=== PATIENT | male | born 1970 | race Two or more races ===

== ENCOUNTER 2019-01-30 12:55 | Emergency (ER) | payer BC, MEDICAID ==
[2019-01-30] MEDS: Sodium Chloride 0.9% 10 ML Syringe FLUSH PRN ×2 (13:15→13:30)
[2019-01-30] MEDS ORDERED: Labetalol 100 MG/20 ML MDV IVPUSH ONE (13:24)
--- NOTE | 2019-01-30 13:31 | EDM.PDOC ---
ED HPI GENERAL MEDICAL PROBLEM - General Chief Complaint: Cardiovascular Problem Stated Complaint: HIGH BP, LEFT HAND TINGLING Time Seen by Provider: 01/30/19 13:25 Source of Information: Reports: Patient History Limitations: Reports: No Limitations - History of Present Illness INITIAL COMMENTS - FREE TEXT/NARRATIVE: Developed anxiety, left hand tingling, and a feeling that his BP was high after being denied disability @1 hr ago. Has a h/o CABG (in 11/2017) and coronary stents (most recently in 04/2018). The patient is noncompliant with medications, he takes Coreg and Lisinopril once a day in the evening, however these are to be taken twice a day. He continues to smoke cigarettes. Patient denies chest pain or SOB. All previous AZ's were associated with chest pain and neck/jaw discomfort, neither of which he experienced today. Duration: Hour(s): (1) - Related Data Allergies Allergy/AdvReac Type Severity Reaction Status Date / Time No Known Allergies Allergy Verified 01/30/19 13:03 Home Meds: Home Meds Aspirin 325 mg PO DAILY 01/30/19 [History] Carvedilol [Coreg] 12.5 mg PO BID 01/30/19 [History] Clopidogrel Bisulfate [Plavix] 75 mg PO DAILY 01/30/19 [History] Isosorbide Mononitrate [Isosorbide Mononitrate ER] 60 mg PO DAILY 01/30/19 [ History] LORazepam [Ativan] 0.5 mg PO Q8H PRN #10 tablet 01/30/19 [Rx] Lisinopril 10 mg PO BID 01/30/19 [History] Potassium 198 mg PO DAILY 01/30/19 [History] atorvaSTATin [Lipitor] 40 mg PO DAILY 01/30/19 [History] buPROPion HCl [Wellbutrin Xl] 300 mg PO DAILY 01/30/19 [History] Past Medical History Cardiovascular History: Reports: Bypass, CAD, High Cholesterol, Hypertension, [place] , Stents Respiratory History: Reports: Sleep Apnea Psychiatric History: Reports: Anxiety, Depression Social & Family History - Tobacco Use Smoking Status *Q: Current Every Day Smoker Tobacco Use Within Last Twelve Months: Cigarettes - Alcohol Use Alcohol Use History: No ED ROS GENERAL - Review of Systems Review Of Systems: ROS reveals no pertinent complaints other than HPI. Cardiovascular: Denies: Chest Pain Neurological: Reports: Paresthesia (left hand) ED EXAM, GENERAL - Physical Exam Exam: See Below Exam Limited By: No Limitations General Appearance: Alert, WD/WN, No Apparent Distress Ears: Normal External Exam Nose: Normal Inspection Throat/Mouth: Normal Inspection, No Airway Compromise Head: Atraumatic, Normocephalic Neck: Normal Inspection, Supple Respiratory/Chest: No Respiratory Distress, Lungs Clear, Normal Breath Sounds Cardiovascular: Regular Rate, Rhythm, No Murmur GI/Abdominal: No Distention Extremities: Normal Inspection, Normal Range of Motion, Non-Tender, No Pedal Edema Neurological: Alert, CN II-XII Intact, Other (decreased sensation to light touch to dorsum of left hand, no weakness) Psychiatric: Normal Affect, Normal Mood Skin Exam: Warm, Dry, Intact EKG INTERPRETATION EKG Date: 01/30/19 Time: 13:13 Rhythm: NSR Rate (Beats/Min): 86 [place]: Normal P-Wave: Present QRS: Other (incomplete LBBB) ST-T: Other (Early repolarization ST elevation) QT: Normal Comparison: No Change (04/16/18) Course - Vital Signs Last Recorded V/S: Last Vital Signs Temp 36.6 C 01/30/19 13:00 Pulse 98 01/30/19 13:00 Resp 22 H 01/30/19 15:00 BP 143/98 H 01/30/19 15:00 Pulse Ox 98 01/30/19 15:00 - Orders/Labs/Meds Orders: Active Orders 24 hr Category Date Time Status EKG Documentation Completion [RC] ASDIRECTED Care 01/30/19 13:23 Active GLYCOSYLATED HEMOGLOBIN,HGBA1C [CHEM] Stat Lab 01/30/19 13:35 Received Sodium Chloride 0.9% [Saline Flush] Med 01/30/19 13:23 Active 10 ml FLUSH ASDIRECTED PRN Saline Lock Insert [OM.PC] Routine Oth 01/30/19 13:23 Ordered EKG 12 Lead [EK] Stat Ther 01/30/19 13:23 Ordered Medication Orders Sodium Chloride (Saline Flush) 10 ml FLUSH ASDIRECTED PRN PRN Reason: Keep Vein Open Last Admin: 01/30/19 13:30 Dose: 10 ml Admin: 01/30/19 13:15 Dose: 10 ml Labs: Laboratory Tests 01/30/19 01/30/19 01/30/19 Range/Units 13:35 13:35 13:35 WBC 9.1 (4.5-12.0) X10-3/uL RBC 5.40 (4.30-5.75) x10(6)uL Hgb 15.6 (13.5-17.8) g/dL Hct 45.9 (30.0-51.3) % MCV 85.1 (80-96) fL MCH 28.9 (27.7-33.6) pg MCHC 34.0 (32.2-35.4) g/dL RDW 11.8 (11.5-15.5) % Plt Count 236 (125-369) X10(3)uL MPV 7.9 (7.4-10.4) fL Neut % (Auto) 56.2 (46-82) % Lymph % (Auto) 34.1 (13-37) % [place] % (Auto) 7.4 (4-12) % Eos % (Auto) 2 (1.0-5.0) % Baso % (Auto) 1 (0-2) % Neut # (Auto) 5.0 (1.6-8.3) # Lymph # (Auto) 3.1 (0.6-5.0) # [place] # (Auto) 0.7 (0.0-1.3) # Eos # (Auto) 0.2 (0.0-0.8) # Baso # (Auto) 0.1 (0.0-0.2) # PT 9.6 (8.7-11.1) INR 0.99 (0.89-1.13) APTT 23.5 L (24.4-33.2) SECONDS Sodium 137 (135-145) mmol/L Potassium 4.0 (3.5-5.3) mmol/L Chloride 103 (100-110) mmol/L Carbon Dioxide 23 (21-32) mmol/L BUN 10 (7-18) mg/dL Creatinine 0.8 (0.70-1.30) mg/dL Est Cr Clr Drug Dosing TNP Estimated GFR (MDRD) > 60 (>60) BUN/Creatinine Ratio 12.5 (9-20) Glucose 252 H (80-116) mg/dL Calcium 8.9 (8.6-10.2) mg/dL Total Bilirubin 0.3 (0.1-1.3) mg/dL AST 17 (5-25) IU/L ALT 49 H (12-36) U/L Alkaline Phosphatase 128 H (56-112) IU/L Troponin I (<0.017-0.056) ng/mL Total Protein 7.1 (6.0-8.0) g/dL Albumin 3.6 (3.5-5.2) g/dL Globulin 3.5 g/dL Albumin/Globulin Ratio 1.0 01/30/19 01/30/19 Range/Units 13:35 16:20 WBC (4.5-12.0) X10-3/uL RBC (4.30-5.75) x10(6)uL Hgb (13.5-17.8) g/dL Hct (30.0-51.3) % MCV (80-96) fL MCH (27.7-33.6) pg MCHC (32.2-35.4) g/dL RDW (11.5-15.5) % Plt Count (125-369) X10(3)uL MPV (7.4-10.4) fL Neut % (Auto) (46-82) % Lymph % (Auto) (13-37) % [place] % (Auto) (4-12) % Eos % (Auto) (1.0-5.0) % Baso % (Auto) (0-2) % Neut # (Auto) (1.6-8.3) # Lymph # (Auto) (0.6-5.0) # [place] # (Auto) (0.0-1.3) # Eos # (Auto) (0.0-0.8) # Baso # (Auto) (0.0-0.2) # PT (8.7-11.1) INR (0.89-1.13) APTT (24.4-33.2) SECONDS Sodium (135-145) mmol/L Potassium (3.5-5.3) mmol/L Chloride (100-110) mmol/L Carbon Dioxide (21-32) mmol/L BUN (7-18) mg/dL Creatinine (0.70-1.30) mg/dL Est Cr Clr Drug Dosing Estimated GFR (MDRD) (>60) BUN/Creatinine Ratio (9-20) Glucose (80-116) mg/dL Calcium (8.6-10.2) mg/dL Total Bilirubin (0.1-1.3) mg/dL AST (5-25) IU/L ALT (12-36) U/L Alkaline Phosphatase (56-112) IU/L Troponin I < 0.017 L 0.018 (<0.017-0.056) ng/mL Total Protein (6.0-8.0) g/dL Albumin (3.5-5.2) g/dL Globulin g/dL Albumin/Globulin Ratio Meds: Medications Generic Name Dose Route Start Last Admin Trade Name Freq PRN Reason Stop Dose Admin Sodium Chloride 10 ml 01/30/19 13:23 01/30/19 13:30 Saline Flush FLUSH 10 ml ASDIRECTED PRN Administration Keep Vein Open Discontinued Medications Generic Name Dose Route Start Last Admin Trade Name Freq PRN Reason Stop Dose Admin Aspirin 324 mg 01/30/19 14:11 01/30/19 14:16 Aspirin PO 01/30/19 14:12 324 mg ONETIME ONE Administration Labetalol HCl 10 mg 01/30/19 13:24 01/30/19 13:30 Normodyne IVPUSH 01/30/19 13:25 10 mg ONETIME ONE Administration Protocol Lisinopril 10 mg 01/30/19 15:39 01/30/19 15:40 Prinivil PO 01/30/19 15:40 Not Given ONETIME ONE Nitroglycerin 0.4 mg 01/30/19 14:01 01/30/19 14:05 Nitrostat SL 01/30/19 14:02 0.4 mg ONETIME ONE Administration - Re-Assessments/Exams Free Text/Narrative Re-Assessment/Exam: 01/30/19 17:01 Symptoms have resolved, he no longer has numbness or tingling of the left hand. BP improved to 111/73 after Labetolol 10 mg IV and NTG SL x 1. Patient requests PRN anxiety medication. Departure - Departure Time of Disposition: 17:02 Disposition: Home, Self-Care 01 Condition: Good Clinical Impression: Hypertensive urgency, Anxiety Prescriptions: LORazepam [Ativan] 0.5 mg PO Q8H PRN #10 tablet PRN Reason: Anxiety Instructions: Hypertension, [id number], Generalized Anxiety Disorder, Adult Referrals: Sandeep Fuller MD [Primary Care Provider] - 1 Day Forms: ED Department Discharge Additional Instructions: Take your medications as prescribed, do not miss any doses. Fill the prescription for Ativan and take as directed. Follow up with your primary physician in 1-2 days. Return to the ER if symptoms recur or worsen. - My Orders Last 24 Hours: My Active Orders 01/30/19 13:23 EKG Documentation Completion [RC] ASDIRECTED Sodium Chloride 0.9% [Saline Flush] 10 ml FLUSH ASDIRECTED PRN Saline Lock Insert [OM.PC] Routine EKG 12 Lead [EK] Stat 01/30/19 13:35 GLYCOSYLATED HEMOGLOBIN,HGBA1C [CHEM] Stat - Assessment/Plan Last 24 Hours: My Active Orders 01/30/19 13:23 EKG Documentation Completion [RC] ASDIRECTED Sodium Chloride 0.9% [Saline Flush] 10 ml FLUSH ASDIRECTED PRN Saline Lock Insert [OM.PC] Routine EKG 12 Lead [EK] Stat 01/30/19 13:35 GLYCOSYLATED HEMOGLOBIN,HGBA1C [CHEM] Stat
[2019-01-30] MEDS ORDERED: Nitroglycerin 0.4 MG Tab.SL SL ONE (14:01)
[2019-01-30] MEDS ORDERED: Aspirin 81 MG Tab.Chew PO ONE (14:11)
[2019-01-30] MEDS ORDERED: Lisinopril 10 MG Tab PO ONE (15:39)
[2019-01-30 17:10] LABS: HEMOGLOBIN A1C 8.4 % (4.5-6.2)
== END 2019-01-30 17:15 | disposition home or self-care (01) ==
LOC: FB.ED 12:55
DX: I16.0 Hypertensive urgency (principal); F41.9 Anxiety disorder, unspecified; I10 Essential (primary) hypertension; E78.00 Pure hypercholesterolemia, unspecified; F32.9 Major depressive disorder, single episode, unspecified; I25.10 Atherosclerotic heart disease of native coronary artery without angina pectoris; F17.210 Nicotine dependence, cigarettes, uncomplicated; Z79.82 Long term (current) use of aspirin; Z79.02 Long term (current) use of antithrombotics/antiplatelets; Z79.899 Other long term (current) drug therapy
CPT/HCPCS: 36415; 80053; 83036; 84484; 85025; 85610; 85730; 93005; 96374; 99284; A9270; J3490

== ENCOUNTER 2020-03-25 18:27 | Emergency (ER) | payer MEDICAID ==
[2020-03-25] MEDS ORDERED: Amoxicillin/Clavulanate K 875-125 MG Tab PO ONE (18:47)
[2020-03-25] MEDS ORDERED: Ketorolac 60 MG/2 ML SDV IM ONE (18:48)
--- NOTE | 2020-03-25 18:54 | EDM.PDOC ---
ED HPI GENERAL MEDICAL PROBLEM - General Chief Complaint: ENT Problem Stated Complaint: LT EAR PAIN Time Seen by Provider: 03/25/20 18:40 Source of Information: Reports: Patient History Limitations: Reports: No Limitations - History of Present Illness INITIAL COMMENTS - FREE TEXT/NARRATIVE: left sided ear pain since this am woke with the pain thought he had ear wax, flushed it and it got worse having moderate pain in the ear with headache LEFT EAR Pain Score (Numeric/FACES): 8 - Related Data Allergies Allergy/AdvReac Type Severity Reaction Status Date / Time No Known Allergies Allergy Verified 03/25/20 18:46 Home Meds: Home Meds Isosorbide Mononitrate [Isosorbide Mononitrate ER] 60 mg PO DAILY 01/30/19 [History] LORazepam [Ativan] 0.5 mg PO Q8H PRN #10 tablet 01/30/19 [Rx] Lisinopril 10 mg PO BID 01/30/19 [History] Potassium 198 mg PO DAILY 01/30/19 [History] atorvaSTATin [Lipitor] 40 mg PO DAILY 01/30/19 [History] buPROPion HCL [Wellbutrin Xl] 300 mg PO DAILY 01/30/19 [History] carvediloL [Coreg] 12.5 mg PO BID 01/30/19 [History] Amoxicillin/Potassium Clav [Augmentin 875-125 Tablet] 1 each PO BID #20 tablet 03/25/20 [Rx] Aspirin [Adult Low Dose Aspirin EC] 81 mg PO DAILY 03/25/20 [History] Past Medical History HEENT History: Reports: Other (See Below) Other HEENT History: broken eye socket as a kid Cardiovascular History: Reports: Bypass, CAD, High Cholesterol, Hypertension, [place], Stents Respiratory History: Reports: Sleep Apnea Gastrointestinal History: Reports: Diverticulosis Psychiatric History: Reports: Anxiety, Depression - Past Surgical History GI Surgical History: Reports: Colon Musculoskeletal Surgical History: Reports: Arthroscopic Knee, ORIF, Other (See Below) Other Musculoskeletal Surgeries/Procedures:: right ankle fx with surgical fixation, Social & Family History - Tobacco Use Smoking Status *Q: Current Every Day Smoker Years of Tobacco use: 15 Packs/Tins Daily: 0.2 - Caffeine Use Caffeine Use: Reports: Coffee - Recreational Drug Use Recreational Drug Use: No ED ROS ENT - Review of Systems Review Of Systems: Comprehensive ROS is negative, except as noted in HPI. Constitutional: Denies: Fever, Chills, Malaise HEENT: Reports: Ear Pain (left sided) Respiratory: Reports: No Symptoms Cardiovascular: Reports: No Symptoms Endocrine: Reports: No Symptoms GI/Abdominal: Reports: No Symptoms Musculoskeletal: Reports: No Symptoms Skin: Reports: No Symptoms Neurological: Reports: Headache ED EXAM, ENT - Physical Exam Exam: See Below Exam Limited By: No Limitations General Appearance: Alert, WD/WN, No Apparent Distress Eye Exam: Bilateral Eye: EOMI Ears: Normal Canal (on the right), Auricular Tenderness (left ), TM Bulging (left), TM Dullness (left), TM Erythema (left) Nose: Normal Inspection Mouth/Throat: Normal Inspection Head: Atraumatic, Normocephalic Neck: Supple, Non-Tender Respiratory/Chest: No Respiratory Distress, Lungs Clear Cardiovascular: Regular Rate, Rhythm Back: Normal Inspection, Full Range of Motion Extremities: Normal Inspection, Normal Range of Motion Neurological: Alert, Oriented, CN II-XII Intact Course - Vital Signs Last Recorded V/S: Last Vital Signs Temp Pulse 77 03/25/20 18:30 Resp 20 03/25/20 18:30 BP 157/101 H 03/25/20 18:30 Pulse Ox 98 03/25/20 18:30 - Orders/Labs/Meds Meds: Medications Discontinued Medications Generic Name Dose Route Start Last Admin Trade Name Freq PRN Reason Stop Dose Admin Amoxicillin/Clavulanate Potassium 1 tab 03/25/20 18:47 Augmentin 875 Mg/125 Mg PO 03/25/20 18:48 ONETIME ONE Ketorolac Tromethamine 60 mg 03/25/20 18:48 Toradol IM 03/25/20 18:49 ONETIME ONE Departure - Departure Time of Disposition: 18:55 Disposition: Home, Self-Care 01 Condition: Fair Clinical Impression: Otitis media of left ear - Discharge Information *PRESCRIPTION DRUG MONITORING PROGRAM REVIEWED*: Not Applicable *COPY OF PRESCRIPTION DRUG MONITORING REPORT IN PATIENT MISTI: Not Applicable Prescriptions: Amoxicillin/Potassium Clav [Augmentin 875-125 Tablet] 1 each PO BID #20 tablet Referrals: Sandeep Fuller MD [Primary Care Provider] - Additional Instructions: Ok to clean ear canal after completion of antibiotics Sepsis Event Note (ED) - Evaluation Sepsis Screening Result: No Definite Risk - Focused Exam Vital Signs: Vital Signs Pulse Resp BP Pulse Ox 03/25/20 18:30 77 20 157/101 H 98
== END 2020-03-25 19:00 | disposition home or self-care (01) ==
LOC: FB.ED 18:27
DX: H66.92 Otitis media, unspecified, left ear (principal); I25.10 Atherosclerotic heart disease of native coronary artery without angina pectoris; E78.00 Pure hypercholesterolemia, unspecified; I25.2 Old myocardial infarction; F17.210 Nicotine dependence, cigarettes, uncomplicated; Z95.5 Presence of coronary angioplasty implant and graft; F32.9 Major depressive disorder, single episode, unspecified; Z79.82 Long term (current) use of aspirin; Z79.899 Other long term (current) drug therapy
CPT/HCPCS: 96372; 99282; A9270; J1885

== ENCOUNTER 2020-04-12 11:22 | Emergency (ER) | payer MEDICAID ==
[2020-04-12] MEDS ORDERED: Sodium Chloride 0.9% 10 ML Syringe FLUSH PRN (11:26)
[2020-04-12] MEDS ORDERED: Metoprolol Tartrate 5 MG in Sodium Chloride 0.9% 50 ML IV ONE (11:26)
--- NOTE | 2020-04-12 11:30 | EDM.PDOC ---
ED HPI GENERAL MEDICAL PROBLEM - General Stated Complaint: HEART ATTACK Time Seen by Provider: 04/12/20 11:27 Source of Information: Reports: Patient History Limitations: Reports: No Limitations - History of Present Illness INITIAL COMMENTS - FREE TEXT/NARRATIVE: Lester is well known to us. He has complaints this morning of left sided shoulder pain,left jaw pain and an elevated BP. This started suddenly at 1000hrs. Associated with mild SOB,anxiety. He has a remarkable h/o CAD,and multivessel bypass,HTN and tobacco abuse. Chest Pain Score (Numeric/FACES): 6 - Related Data Allergies Allergy/AdvReac Type Severity Reaction Status Date / Time No Known Allergies Allergy Verified 03/25/20 18:46 Home Meds: Home Meds Isosorbide Mononitrate [Isosorbide Mononitrate ER] 60 mg PO DAILY 01/30/19 [History] LORazepam [Ativan] 0.5 mg PO Q8H PRN #10 tablet 01/30/19 [Rx] Lisinopril 10 mg PO BID 01/30/19 [History] Potassium 198 mg PO DAILY 01/30/19 [History] atorvaSTATin [Lipitor] 40 mg PO DAILY 01/30/19 [History] buPROPion HCL [Wellbutrin Xl] 300 mg PO DAILY 01/30/19 [History] carvediloL [Coreg] 12.5 mg PO BID 01/30/19 [History] Amoxicillin/Potassium Clav [Augmentin 875-125 Tablet] 1 each PO BID #20 tablet 03/25/20 [Rx] Aspirin [Adult Low Dose Aspirin EC] 81 mg PO DAILY 03/25/20 [History] Past Medical History HEENT History: Reports: Other (See Below) Other HEENT History: broken eye socket as a kid Cardiovascular History: Reports: Bypass, CAD, High Cholesterol, Hypertension, [place], Stents Respiratory History: Reports: Sleep Apnea Gastrointestinal History: Reports: Diverticulosis Psychiatric History: Reports: Anxiety, Depression - Past Surgical History GI Surgical History: Reports: Colon Musculoskeletal Surgical History: Reports: Arthroscopic Knee, ORIF, Other (See Below) Other Musculoskeletal Surgeries/Procedures:: right ankle fx with surgical fixation, Social & Family History - Caffeine Use Caffeine Use: Reports: Coffee ED ROS GENERAL - Review of Systems Review Of Systems: Comprehensive ROS is negative, except as noted in HPI. ED EXAM, GENERAL - Physical Exam Exam: See Below Exam Limited By: No Limitations General Appearance: Alert, Anxious Ear Exam: Bilateral Ear: Auricle Normal, Canal Normal, TM normal Nose: Normal Inspection Throat/Mouth: Normal Inspection Head: Atraumatic Neck: Normal Inspection Respiratory/Chest: No Respiratory Distress Cardiovascular: Normal Peripheral Pulses, No JVD GI/Abdominal: Normal Bowel Sounds Back Exam: Normal Inspection Extremities: Normal Inspection Psychiatric: Normal Affect, Anxious Skin Exam: Warm Lymphatic: No Adenopathy EKG INTERPRETATION EKG Date: 04/12/20 Rhythm: NSR Course - Vital Signs Last Recorded V/S: Last Vital Signs Temp 97.9 F 04/12/20 11:45 Pulse 64 04/12/20 12:17 Resp 18 04/12/20 12:17 BP 148/91 H 04/12/20 12:17 Pulse Ox 96 04/12/20 12:17 - Orders/Labs/Meds Orders: Active Orders 24 hr Category Date Time Status EKG Documentation Completion [RC] ASDIRECTED Care 04/12/20 11:27 Active Chest 1V Frontal [CR] Stat Exams 04/12/20 11:26 Taken Ketorolac [Toradol] Med 04/12/20 12:22 Active 30 mg IVPUSH Q6H PRN Ondansetron [Zofran] Med 04/12/20 12:22 Active 4 mg IVPUSH Q4H PRN Sodium Chloride 0.9% [Saline Flush] Med 04/12/20 11:26 Active 10 ml FLUSH ASDIRECTED PRN Peripheral IV Insertion Adult [OM.PC] Routine Oth 04/12/20 11:26 Ordered EKG 12 Lead [EK] Routine Ther 04/12/20 11:26 Ordered Medication Orders Ketorolac Tromethamine (Toradol) 30 mg IVPUSH Q6H PRN PRN Reason: Headache Stop: 04/17/20 12:23 Last Admin: 04/12/20 14:36 Dose: 30 mg Documented by: CODY Ondansetron HCl (Zofran) 4 mg IVPUSH Q4H PRN PRN Reason: Nausea/Vomiting Sodium Chloride (Saline Flush) 10 ml FLUSH ASDIRECTED PRN PRN Reason: Keep Vein Open Last Admin: 04/12/20 11:37 Dose: 10 ml Documented by: MARINA Labs: Laboratory Tests 04/12/20 04/12/20 04/12/20 Range/Units 11:30 11:30 11:30 WBC 9.6 (4.5-12.0) X10-3/uL RBC 5.64 (4.30-5.75) x10(6)uL Hgb 15.4 (13.5-17.8) g/dL Hct 48.2 (30.0-51.3) % MCV 85.5 (80-96) fL MCH 27.3 L (27.7-33.6) pg MCHC 32.0 L (32.2-35.4) g/dL RDW 12.2 (11.5-15.5) % Plt Count 237 (125-369) X10(3)uL MPV 8.2 (7.4-10.4) fL Neut % (Auto) 56.7 (46-82) % Lymph % (Auto) 34.1 (13-37) % [place] % (Auto) 6.7 (4-12) % Eos % (Auto) 2 (1.0-5.0) % Baso % (Auto) 1 (0-2) % Neut # (Auto) 5.5 (1.6-8.3) # Lymph # (Auto) 3.3 (0.6-5.0) # [place] # (Auto) 0.6 (0.0-1.3) # Eos # (Auto) 0.2 (0.0-0.8) # Baso # (Auto) 0.0 (0.0-0.2) # Sodium 135 (135-145) mmol/L Potassium 4.3 (3.5-5.3) mmol/L Chloride 100 (100-110) mmol/L Carbon Dioxide 23 (21-32) mmol/L BUN 13 (7-18) mg/dL Creatinine 1.2 (0.70-1.30) mg/dL Est Cr Clr Drug Dosing TNP Estimated GFR (MDRD) > 60 (>60) BUN/Creatinine Ratio 10.8 (9-20) Glucose 321 H (80-116) mg/dL Calcium 8.5 L (8.6-10.2) mg/dL Troponin I 12.0 (4.0-60.3) pg/mL 04/12/20 Range/Units 15:05 WBC (4.5-12.0) X10-3/uL RBC (4.30-5.75) x10(6)uL Hgb (13.5-17.8) g/dL Hct (30.0-51.3) % MCV (80-96) fL MCH (27.7-33.6) pg MCHC (32.2-35.4) g/dL RDW (11.5-15.5) % Plt Count (125-369) X10(3)uL MPV (7.4-10.4) fL Neut % (Auto) (46-82) % Lymph % (Auto) (13-37) % [place] % (Auto) (4-12) % Eos % (Auto) (1.0-5.0) % Baso % (Auto) (0-2) % Neut # (Auto) (1.6-8.3) # Lymph # (Auto) (0.6-5.0) # [place] # (Auto) (0.0-1.3) # Eos # (Auto) (0.0-0.8) # Baso # (Auto) (0.0-0.2) # Sodium (135-145) mmol/L Potassium (3.5-5.3) mmol/L Chloride (100-110) mmol/L Carbon Dioxide (21-32) mmol/L BUN (7-18) mg/dL Creatinine (0.70-1.30) mg/dL Est Cr Clr Drug Dosing Estimated GFR (MDRD) (>60) BUN/Creatinine Ratio (9-20) Glucose (80-116) mg/dL Calcium (8.6-10.2) mg/dL Troponin I 24.1 (4.0-60.3) pg/mL Meds: Medications Generic Name Dose Route Start Last Admin Trade Name Freq PRN Reason Stop Dose Admin Ketorolac Tromethamine 30 mg 04/12/20 12:22 04/12/20 14:36 Toradol IVPUSH 04/17/20 12:23 30 mg Q6H PRN Administration Headache Ondansetron HCl 4 mg 04/12/20 12:22 Zofran IVPUSH Q4H PRN Nausea/Vomiting Sodium Chloride 10 ml 04/12/20 11:26 04/12/20 11:37 Saline Flush FLUSH 10 ml ASDIRECTED PRN Administration Keep Vein Open Discontinued Medications Generic Name Dose Route Start Last Admin Trade Name Michealq PRN Reason Stop Dose Admin Metoprolol Tartrate 5 mg/ 55 mls @ 100 mls/hr 04/12/20 11:26 04/12/20 12:08 Sodium Chloride IV 04/12/20 11:58 Not Given ONETIME ONE Labetalol HCl 10 mg 04/12/20 11:36 04/12/20 11:48 Normodyne IVPUSH 04/12/20 11:37 10 mg ONETIME ONE Administration Protocol Morphine Sulfate 4 mg 04/12/20 11:34 04/12/20 11:41 Morphine IVPUSH 04/12/20 11:35 4 mg ONETIME ONE Administration Nitroglycerin 0.4 mg 04/12/20 11:26 04/12/20 12:05 Nitrostat SL 0.4 mg Q5M PRN Administration Chest Pain Departure - Departure Time of Disposition: 16:08 Disposition: Home, Self-Care 01 Condition: Good Clinical Impression: Hypertensive urgency, Anxiety, CAD (coronary artery disease) Instructions: Hypertension, Adult Referrals: PCP,None [Ordering Only Provider] - Forms: ED Department Discharge Additional Instructions: Follow up with Dr. Fuller on Sunday. Return to the ER if you experience worsening symptoms. Sepsis Event Note (ED) - Focused Exam Vital Signs: Vital Signs Temp Pulse Resp BP BP Pulse Ox 04/12/20 12:17 64 18 148/91 H 96 04/12/20 12:05 152/87 H 04/12/20 11:48 187/112 H 04/12/20 11:45 97.9 F 65 20 187/112 H 100 04/12/20 11:37 195/110 H - Problem List & Annotations (1) Hypertensive urgency SNOMED Code(s): 889737224 Code(s): I16.0 - HYPERTENSIVE URGENCY Status: Acute Current Visit: No (2) CAD (coronary artery disease) SNOMED Code(s): 97613206 Code(s): I25.10 - ATHSCL HEART DISEASE OF [place] CORONARY ARTERY W/O ANG PCTRS Status: Acute Current Visit: No Qualifiers: Coronary Disease-Associated Artery/Lesion type: bypass graft [place] vs. transplanted heart: [place] heart (3) Anxiety SNOMED Code(s): 88454933 Code(s): F41.9 - ANXIETY DISORDER, UNSPECIFIED Status: Acute Current Visit: No - Problem List Review Problem List Initiated/Reviewed/Updated: Yes - My Orders Last 24 Hours: My Active Orders 04/12/20 11:26 Chest 1V Frontal [CR] Stat Sodium Chloride 0.9% [Saline Flush] 10 ml FLUSH ASDIRECTED PRN Peripheral IV Insertion Adult [OM.PC] Routine EKG 12 Lead [EK] Routine 04/12/20 11:27 EKG Documentation Completion [RC] ASDIRECTED 04/12/20 12:22 Ketorolac [Toradol] 30 mg IVPUSH Q6H PRN Ondansetron [Zofran] 4 mg IVPUSH Q4H PRN - Assessment/Plan Last 24 Hours: My Active Orders 04/12/20 11:26 Chest 1V Frontal [CR] Stat Sodium Chloride 0.9% [Saline Flush] 10 ml FLUSH ASDIRECTED PRN Peripheral IV Insertion Adult [OM.PC] Routine EKG 12 Lead [EK] Routine 04/12/20 11:27 EKG Documentation Completion [RC] ASDIRECTED 04/12/20 12:22 Ketorolac [Toradol] 30 mg IVPUSH Q6H PRN Ondansetron [Zofran] 4 mg IVPUSH Q4H PRN Plan: His EKG was normal. CXR was unremarkable. Highly sensitive troponin was negative x 2. Pain was gone and BP was lowered by IV BB. He got Morphne and Nitro upon ED visit. I discharged him to see me n Sunday.
[2020-04-12] MEDS ORDERED: Morphine 4 MG/ML VIAL IVPUSH ONE (11:34)
[2020-04-12] MEDS ORDERED: Labetalol 20 MG/4 ML Syringe IVPUSH ONE (11:36)
[2020-04-12] MEDS: Nitroglycerin 0.4 MG Tab.SL SL PRN ×3 (11:37→12:05)
[2020-04-12] MEDS ORDERED: Ondansetron 4 MG/2 ML SDV IVPUSH PRN (12:22)
[2020-04-12] MEDS ORDERED: Ketorolac 30 MG/ML SDV IVPUSH PRN (12:22)
--- NOTE | 2020-04-13 10:40 | CR ---
INDICATION: Triple bypass in November of 2017. Chest pain. CHEST, 1 VIEW: An AP upright portable view of the chest was obtained 04/12/20 and compared with 05/04/10. The heart did not appear enlarged allowing for the AP position. Evidence of exogenous obesity is noted. Overlying EKG leads are noted. Evidence of previous median sternotomy is noted. Pulmonary markings are similar to the previous examination of 2009 without a definite active infiltrate or effusion identified. IMPRESSION: No acute process. MTDD
== END 2020-04-12 16:10 | disposition home or self-care (01) ==
LOC: FB.ED 11:22
DX: I16.0 Hypertensive urgency (principal); F41.9 Anxiety disorder, unspecified; I25.10 Atherosclerotic heart disease of native coronary artery without angina pectoris; I25.2 Old myocardial infarction; F32.9 Major depressive disorder, single episode, unspecified; E78.00 Pure hypercholesterolemia, unspecified; I10 Essential (primary) hypertension; Z79.899 Other long term (current) drug therapy; Z79.82 Long term (current) use of aspirin; Z95.5 Presence of coronary angioplasty implant and graft
CPT/HCPCS: 36415; 71045; 80048; 84484; 85025; 93005; 96374; 96375; 99285; A9270; J1885; J2270; J3490

== ENCOUNTER 2020-04-14 00:34 | Emergency (ER) | payer MEDICAID ==
[2020-04-14] MEDS: Nitroglycerin 0.4 MG Tab.SL SL ONE (01:35)
--- NOTE | 2020-04-14 02:21 | EDM.PDOC ---
ED HPI GENERAL MEDICAL PROBLEM - General Chief Complaint: Cardiovascular Problem Stated Complaint: chest pain Time Seen by Provider: 04/14/20 02:15 Source of Information: Reports: Patient History Limitations: Reports: No Limitations - History of Present Illness INITIAL COMMENTS - FREE TEXT/NARRATIVE: Patient presented to the ED because of left shoulder and jaw pain which started at 10:30 PM . The pain is sharp,10/10, denies any n/ v, dyspnea or diaphoresis. He too ASA 324 mg en route to the ED. Patient had another episode a day ago an was seen in our ED, Troponin then was negative, he was given 3 NTG SL, morphine IV which took the pain away and was discharged. Mr Rene had 4 previous [place]'s , the last pne was in 04/2018 when he had his stent placed, and in 11/2017 he under went CABG. 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: EKG jaw and shoulder Pain Score (Numeric/FACES): 10 - Related Data Allergies Allergy/AdvReac Type Severity Reaction Status Date / Time No Known Allergies Allergy Verified 04/14/20 00:54 Home Meds: Home Meds Isosorbide Mononitrate [Isosorbide Mononitrate ER] 60 mg PO DAILY 01/30/19 [History] LORazepam [Ativan] 0.5 mg PO Q8H PRN #10 tablet 01/30/19 [Rx] Lisinopril 10 mg PO BID 01/30/19 [History] Potassium 198 mg PO DAILY 01/30/19 [History] atorvaSTATin [Lipitor] 40 mg PO DAILY 01/30/19 [History] buPROPion HCL [Wellbutrin Xl] 300 mg PO DAILY 01/30/19 [History] carvediloL [Coreg] 12.5 mg PO BID 01/30/19 [History] Aspirin [Adult Low Dose Aspirin EC] 81 mg PO DAILY 03/25/20 [History] Past Medical History HEENT History: Reports: Other (See Below) Other HEENT History: broken eye socket as a kid Cardiovascular History: Reports: Bypass, CAD, High Cholesterol, Hypertension, [place], Stents Respiratory History: Reports: Sleep Apnea Gastrointestinal History: Reports: Diverticulosis Psychiatric History: Reports: Anxiety, Depression - Past Surgical History GI Surgical History: Reports: Colon Musculoskeletal Surgical History: Reports: Arthroscopic Knee, ORIF, Other (See Below) Other Musculoskeletal Surgeries/Procedures:: right ankle fx with surgical fixation, Social & Family History - Tobacco Use Smoking Status *Q: Current Every Day Smoker Years of Tobacco use: 35 Packs/Tins Daily: 0.2 - Caffeine Use Caffeine Use: Reports: Coffee - Recreational Drug Use Recreational Drug Use: Yes Drug Use in Last 12 Months: No ED ROS GENERAL - Review of Systems Review Of Systems: See Below Constitutional: Reports: No Symptoms HEENT: Reports: No Symptoms Respiratory: Reports: No Symptoms Cardiovascular: Reports: Chest Pain Endocrine: Reports: No Symptoms GI/Abdominal: Reports: No Symptoms : Reports: No Symptoms Musculoskeletal: Reports: No Symptoms Skin: Reports: No Symptoms Neurological: Reports: No Symptoms Psychiatric: Reports: No Symptoms Hematologic/Lymphatic: Reports: No Symptoms ED EXAM, GENERAL - Physical Exam Exam: See Below Exam Limited By: No Limitations General Appearance: Alert, No Apparent Distress Eye Exam: Bilateral Eye: PERRL Ears: Normal External Exam, Normal Canal Nose: Normal Inspection, Normal Mucosa, No Blood Throat/Mouth: Normal Inspection, Normal Lips, Normal Gums Head: Atraumatic, Normocephalic Neck: Normal Inspection, Supple, Non-Tender, Full Range of Motion Respiratory/Chest: No Respiratory Distress, Lungs Clear, Normal Breath Sounds Cardiovascular: Normal Peripheral Pulses, Regular Rate, Rhythm, No Edema, No Gallop GI/Abdominal: Normal Bowel Sounds, Soft, Non-Tender, No Organomegaly Back Exam: Normal Inspection, Full Range of Motion Course - Vital Signs Text/Narrative:: Labs/EKG/CXR was discussed with patient and his spouse ASA 324 mg po x1 en route to the ED NTG 0.4 SL and his jaw and shoulder pain resolved Heparin bolus 5,000 U IV x1 Heparin drip @ 1000 U /hr Last Recorded V/S: Last Vital Signs Temp Pulse 78 04/14/20 00:35 Resp 16 04/14/20 00:35 BP 139/79 04/14/20 01:35 Pulse Ox 97 04/14/20 00:35 - Orders/Labs/Meds Orders: Active Orders 24 hr Category Date Time Status EKG Documentation Completion [RC] ASDIRECTED Care 04/14/20 00:35 Active CBC WITH AUTO DIFF [HEME] Stat Lab 04/14/20 01:16 Ordered INR,PT,PROTHROMBIN TIME [COAG] Stat Lab 04/14/20 02:06 Ordered PRO B-TYPE NATRIUR PEPT,BNPPRO [CHEM] Stat Lab 04/14/20 02:06 Ordered PTT,PARTIAL THROMBOPLSTIN TIME [COAG] Stat Lab 04/14/20 02:06 Ordered Heparin 25,000 Units @ 20MLS/HR Med 04/14/20 02:14 Ordered Heparin Sodium/0.45% NaCl [Heparin 25,000 Units in 1/2 NS 500 ML] 500 ml IV ASDIRECTED Heparin Sodium Med 04/14/20 02:13 Once 5,000 units IVPUSH ONETIME ONE EKG 12 Lead [EK] Routine Ther 04/14/20 00:35 Ordered Labs: Laboratory Tests 04/14/20 04/14/20 Range/Units 01:30 01:30 Sodium 141 (135-145) mmol/L Potassium 3.8 (3.5-5.3) mmol/L Chloride 105 D (100-110) mmol/L Carbon Dioxide 26 (21-32) mmol/L BUN 18 (7-18) mg/dL Creatinine 1.2 (0.70-1.30) mg/dL Est Cr Clr Drug Dosing 64.98 mL/min Estimated GFR (MDRD) > 60 (>60) BUN/Creatinine Ratio 15.0 (9-20) Glucose 244 H (80-116) mg/dL Calcium 8.6 (8.6-10.2) mg/dL Total Bilirubin 0.3 (0.1-1.3) mg/dL AST 23 D (5-25) IU/L ALT 47 H (12-36) U/L Alkaline Phosphatase 117 H (56-112) IU/L Troponin I 249.7 H* (4.0-60.3) pg/mL Total Protein 6.2 (6.0-8.0) g/dL Albumin 3.4 L (3.5-5.2) g/dL Globulin 2.8 g/dL Albumin/Globulin Ratio 1.2 Meds: Medications Discontinued Medications Generic Name Dose Route Start Last Admin Trade Name Freq PRN Reason Stop Dose Admin Nitroglycerin 0.4 mg 04/14/20 01:33 04/14/20 01:35 Nitrostat SL 04/14/20 01:34 0.4 mg ONETIME ONE Administration Departure - Departure Time of Disposition: 02:30 Disposition: DC/Tfer to Acute Hospital 02 Reason for Transfer *Q: Other Condition: Good Clinical Impression: NSTEMI (non-ST elevated myocardial infarction) Referrals: PCP,None [Primary Care Provider] - Sepsis Event Note (ED) - Evaluation Sepsis Screening Result: No Definite Risk - Focused Exam Vital Signs: Vital Signs Pulse Resp BP BP Pulse Ox 04/14/20 01:35 139/79 04/14/20 00:35 78 16 165/97 H 97 - My Orders Last 24 Hours: My Active Orders 04/14/20 00:35 EKG Documentation Completion [RC] ASDIRECTED EKG 12 Lead [EK] Routine 04/14/20 01:16 CBC WITH AUTO DIFF [HEME] Stat 04/14/20 02:06 INR,PT,PROTHROMBIN TIME [COAG] Stat PRO B-TYPE NATRIUR PEPT,BNPPRO [CHEM] Stat PTT,PARTIAL THROMBOPLSTIN TIME [COAG] Stat 04/14/20 02:13 Heparin Sodium 5,000 units IVPUSH ONETIME ONE 04/14/20 02:14 Heparin 25,000 Units @ 20MLS/HR Heparin Sodium/0.45% NaCl [Heparin 25,000 Units in 1/2 NS 500 ML] 500 ml IV ASDIRECTED - Assessment/Plan Last 24 Hours: My Active Orders 04/14/20 00:35 EKG Documentation Completion [RC] ASDIRECTED EKG 12 Lead [EK] Routine 04/14/20 01:16 CBC WITH AUTO DIFF [HEME] Stat 04/14/20 02:06 INR,PT,PROTHROMBIN TIME [COAG] Stat PRO B-TYPE NATRIUR PEPT,BNPPRO [CHEM] Stat PTT,PARTIAL THROMBOPLSTIN TIME [COAG] Stat 04/14/20 02:13 Heparin Sodium 5,000 units IVPUSH ONETIME ONE 04/14/20 02:14 Heparin 25,000 Units @ 20MLS/HR Heparin Sodium/0.45% NaCl [Heparin 25,000 Units in 1/2 NS 500 ML] 500 ml IV ASDIRECTED
[2020-04-14] MEDS: Heparin Sodium/0.45% NaCl 500 ML IV SCH (02:33)
[2020-04-14] MEDS: Heparin Sodium 5,000 Units/ML Vial IVPUSH ONE (02:33)
== END 2020-04-14 02:55 ==
LOC: FB.ED 00:34
DX: I21.4 Non-ST elevation (NSTEMI) myocardial infarction (principal); I25.10 Atherosclerotic heart disease of native coronary artery without angina pectoris; E78.00 Pure hypercholesterolemia, unspecified; I10 Essential (primary) hypertension; I25.2 Old myocardial infarction; F41.9 Anxiety disorder, unspecified; F32.9 Major depressive disorder, single episode, unspecified; F17.210 Nicotine dependence, cigarettes, uncomplicated; Z79.82 Long term (current) use of aspirin; Z95.5 Presence of coronary angioplasty implant and graft; Z79.899 Other long term (current) drug therapy
CPT/HCPCS: 36415; 80053; 83880; 84484; 85610; 85730; 93005; 96365; 99285; 99285-25; A9270-GY; J1644

== ENCOUNTER 2021-04-16 20:26 | Emergency (ER) | payer MEDICARE, MEDICAID ==
[2021-04-16] MEDS ORDERED: Cyclobenzaprine 10 MG Tab PO ONE (20:27)
[2021-04-16] MEDS: Cyclobenzaprine 10 MG Tab PO ONE (21:01)
--- NOTE | 2021-04-16 21:36 | EDM.PDOC ---
ED HPI GENERAL MEDICAL PROBLEM - General Chief Complaint: Flank Pain Stated Complaint: SEVERE BACK CRAMPING Time Seen by Provider: 04/16/21 20:30 Source of Information: Reports: Patient History Limitations: Reports: No Limitations - History of Present Illness INITIAL COMMENTS - FREE TEXT/NARRATIVE: 51-year-old gentleman with a past medical history significant for coronary artery disease with CABG came to the emergency department for evaluation of right-sided back pain. He states he had a very similar pain to this in the past after a muscle strain from strenuous work. He has been treated with Flexeril in the past. He did take 1 5mg Flexeril prior to coming in today with no obvious relief. He is otherwise in his normal state of health and has no complaints. He does not know of any reason for this to have happened. He denies fever, cough, chest pain, shortness of breath. He describes the pain as severe, like a muscle spasm, starting in the right flank and radiating anteriorly and superior towards his right side/chest. Treatments [employer]: Reports: Other (see below) Other Treatments [employer]: flexeril R flank radiating into R abdomen Pain Score (Numeric/FACES): 10 - Related Data Allergies Allergy/AdvReac Type Severity Reaction Status Date / Time No Known Allergies Allergy Verified 04/16/21 20:43 Home Meds: Home Meds Isosorbide Mononitrate [Isosorbide Mononitrate ER] 60 mg PO DAILY 01/30/19 [History] LORazepam [Ativan] 0.5 mg PO Q8H PRN #10 tablet 01/30/19 [Rx] Lisinopril 10 mg PO BID 01/30/19 [History] Potassium 198 mg PO DAILY 01/30/19 [History] atorvaSTATin [Lipitor] 40 mg PO DAILY 01/30/19 [History] buPROPion HCL [Wellbutrin Xl] 300 mg PO DAILY 01/30/19 [History] carvediloL [Coreg] 12.5 mg PO BID 01/30/19 [History] Aspirin [Adult Low Dose Aspirin EC] 81 mg PO DAILY 03/25/20 [History] Past Medical History HEENT History: Reports: Other (See Below) Other HEENT History: broken eye socket as a kid Cardiovascular History: Reports: Bypass, CAD, High Cholesterol, Hypertension, [place], Stents Other Cardiovascular History: 3 vessel CABG Respiratory History: Reports: Sleep Apnea Gastrointestinal History: Reports: Diverticulosis Psychiatric History: Reports: Anxiety, Depression Endocrine/Metabolic History: Reports: Diabetes, Type II, Obesity/BMI 30+ Hematologic History: Reports: Anticoagulation Therapy - Infectious Disease History Infectious Disease History: Reports: Chicken Pox - Past Surgical History Cardiovascular Surgical History: Reports: Coronary Artery Bypass, Coronary A rtery Stent GI Surgical History: Reports: Colon Musculoskeletal Surgical History: Reports: Arthroscopic Knee, ORIF, Other (See Below) Other Musculoskeletal Surgeries/Procedures:: right ankle fx with surgical fixation, Social & Family History - Family History Family Medical History: No Pertinent Family History - Tobacco Use Tobacco Use Status *Q: Current Every Day Tobacco User Years of Tobacco use: 36 Packs/Tins Daily: 0.6 - Caffeine Use Caffeine Use: Reports: Coffee - Recreational Drug Use Recreational Drug Use: No ED ROS GENERAL - Review of Systems Review Of Systems: See Below Constitutional: Reports: No Symptoms HEENT: Reports: No Symptoms Respiratory: Reports: No Symptoms Cardiovascular: Reports: No Symptoms Endocrine: Reports: No Symptoms GI/Abdominal: Reports: No Symptoms : Reports: No Symptoms Musculoskeletal: Reports: Back Pain, Muscle Pain, Other (Muscle spasm) Skin: Reports: No Symptoms Neurological: Reports: No Symptoms Psychiatric: Reports: No Symptoms Hematologic/Lymphatic: Reports: No Symptoms Immunologic: Reports: No Symptoms ED EXAM,LOWER BACK PAIN/INJURY - Physical Exam Exam: See Below Exam Limited By: No Limitations General Appearance: Alert, Mild Distress Eye Exam: Bilateral Eye: EOMI Head: Atraumatic, Normocephalic Neck: Normal Inspection Respiratory/Chest: No Respiratory Distress, Crackles Cardiovascular: Tachycardia GI/Abdominal: Normal Bowel Sounds, Non-Tender Back Exam: Other (Patient stated that Venkat's punch actually helped to improve his symptoms). No: CVA Tenderness (R), CVA Tenderness (L), Vertebral Tenderness Extremities: Normal Inspection, No Pedal Edema Neurological: Alert, Normal Mood/Affect, Normal Dorsiflexion, CN II-XII Intact Psychiatric: Normal Affect, Normal Mood Skin Exam: Warm, Dry Course - Vital Signs Text/Narrative:: Review of labs shows a very mild leukocytosis, likely reactive. Patient was given 10 mg of Flexeril and has relief and is ready to be discharged to home. Last Recorded V/S: Last Vital Signs Temp 37.3 C 04/16/21 20:37 Pulse 93 04/16/21 20:37 Resp 20 04/16/21 20:37 BP 123/91 H 04/16/21 20:37 Pulse Ox 97 04/16/21 20:37 - Orders/Labs/Meds Orders: Active Orders 24 hr Category Date Time Status CBC WITH AUTO DIFF [HEME] Routine Lab 04/16/21 21:05 Received COMPREHENSIVE METABOLIC PN,CMP [CHEM] Routine Lab 04/16/21 21:05 Received UA W/MICROSCOPIC [URIN] Routine Lab 04/16/21 20:45 Received Meds: Medications Discontinued Medications Generic Name Dose Route Start Last Admin Trade Name Amara PRN Reason Stop Dose Admin Cyclobenzaprine HCl 10 mg 04/16/21 20:54 04/16/21 21:01 Cyclobenzaprine 10 Mg Tab PO 04/16/21 20:55 10 mg ONETIME ONE Administration Departure - Departure Time of Disposition: 21:37 Disposition: Home, Self-Care 01 Clinical Impression: Back muscle spasm - Discharge Information *PRESCRIPTION DRUG MONITORING PROGRAM REVIEWED*: Not Applicable *COPY OF PRESCRIPTION DRUG MONITORING REPORT IN PATIENT MISTI: Not Applicable Instructions: Muscle Cramps and Spasms Referrals: Sandeep Fuller MD [Primary Care Provider] - Additional Instructions: Patient instructed to rest. Patient will be sent home with 8, 10 mg Flexeril tablets and instructed to take the tablets twice a day as needed for pain/spasm. Patient advised to follow-up with his primary care physician this week. Sepsis Event Note (ED) - Evaluation Sepsis Screening Result: No Definite Risk - Focused Exam Vital Signs: Vital Signs Temp Pulse Resp BP Pulse Ox 04/16/21 20:37 37.3 C 93 20 123/91 H 97 - My Orders Last 24 Hours: My Active Orders 04/16/21 20:45 UA W/MICROSCOPIC [URIN] Routine 04/16/21 21:05 CBC WITH AUTO DIFF [HEME] Routine COMPREHENSIVE METABOLIC PN,CMP [CHEM] Routine - Assessment/Plan Last 24 Hours: My Active Orders 04/16/21 20:45 UA W/MICROSCOPIC [URIN] Routine 04/16/21 21:05 CBC WITH AUTO DIFF [HEME] Routine COMPREHENSIVE METABOLIC PN,CMP [CHEM] Routine
== END 2021-04-16 21:48 | disposition home or self-care (01) ==
LOC: FB.ED 20:26
DX: M62.830 Muscle spasm of back (principal); I25.810 Atherosclerosis of coronary artery bypass graft(s) without angina pectoris; E78.00 Pure hypercholesterolemia, unspecified; I10 Essential (primary) hypertension; I25.2 Old myocardial infarction; E11.9 Type 2 diabetes mellitus without complications; E66.9 Obesity, unspecified; Z68.34 Body mass index [BMI] 34.0-34.9, adult; Z72.0 Tobacco use; Z79.82 Long term (current) use of aspirin; Z79.899 Other long term (current) drug therapy; Z79.01 Long term (current) use of anticoagulants
CPT/HCPCS: 36415; 80053; 81001; 85025; 99283; A9270

== ENCOUNTER 2022-06-05 23:55 | Emergency (ER) | payer MEDICARE, MEDICAID ==
[2022-06-06] MEDS ORDERED: Labetalol 20 MG/4 ML Syringe IVPUSH ONE ×2 (00:29→01:13)
[2022-06-06] MEDS ORDERED: Nitroglycerin 0.4 MG Tab.SL SL ONE (00:31)
[2022-06-06] MEDS ORDERED: Midazolam 1 MG/ML 2 ML SDV IVPUSH ONE ×2 (00:42→00:43)
[2022-06-06 01:04] LABS: ESTIMATED GFR 105 mL/min (>60)
[2022-06-06] MEDS ORDERED: Acetaminophen 500 MG Tab PO ONE (01:13)
[2022-06-06] MEDS ORDERED: Potassium Chloride 20 MEQ Tab.ER PO ONE (01:14)
[2022-06-06] MEDS ORDERED: Lisinopril 20 MG Tab ONE (01:18)
[2022-06-06] MEDS ORDERED: Lisinopril 20 MG Tab PO ONE (01:19)
[2022-06-06] MEDS ORDERED: hydrALAZINE 20 MG/ML SDV IVPUSH ONE (01:46)
[2022-06-06] MEDS ORDERED: cloNIDine 0.1 MG Tab PO ONE (01:48)
== END 2022-06-06 04:00 | disposition home or self-care (01) ==
LOC: FB.ED 23:55
DX: I16.0 Hypertensive urgency (principal); R94.31 Abnormal electrocardiogram [ECG] [EKG]; I10 Essential (primary) hypertension; I25.10 Atherosclerotic heart disease of native coronary artery without angina pectoris; E78.00 Pure hypercholesterolemia, unspecified; I25.2 Old myocardial infarction; E11.9 Type 2 diabetes mellitus without complications; E66.9 Obesity, unspecified; Z68.35 Body mass index [BMI] 35.0-35.9, adult; Z79.899 Other long term (current) drug therapy; Z79.82 Long term (current) use of aspirin
CPT/HCPCS: 36415; 80053; 84484; 85025; 93005; 96374; 96375; 96376; 99283-25; A9270-GY; J0360; J2250; J3490

== ENCOUNTER 2023-04-05 11:01 | Emergency (ER) | payer MEDICAID, MEDICARE ==
[2023-04-05] MEDS ORDERED: Sodium Chloride 0.9% 10 ML Syringe FLUSH PRN (11:19)
[2023-04-05] MEDS ORDERED: Aspirin 81 MG Tab.Chew PO ONE (11:30)
[2023-04-05] MEDS ORDERED: Sodium Chloride 0.9% 1,000 ML IV SCH (11:30)
[2023-04-05] MEDS ORDERED: Ondansetron 4 MG/2 ML SDV IVPUSH ONE (11:34)
[2023-04-05 11:46] LABS: BASOPHILS ABSOLUTE AUTO 0.1 x10-3/uL (0.0-0.3); EOSINOPHILS ABSOLUTE AUTO 0.2 x10-3/uL (0.0-0.6); EOSINOPHILS PERCENT AUTO 1.9 % (0.1-6.8); HEMOGLOBIN 17.2 g/dL (12.9-17.7); LYMPHOCYTES ABSOLUTE AUTO 3.3 x10-3/uL (0.5-4.5); LYMPHOCYTES PERCENT AUTO 30.4 % (15.8-45.3); MEAN CORPUSCULAR HEMOGLOBIN 29.1 pg (27.0-33.3); MEAN CORPUSCULAR HGB CONC 33.7 g/dL (28.7-35.3); MEAN CORPUSCULAR VOLUME 86.5 fL (80.8-98.7); MEAN PLATELET VOLUME 7.8 fL (6.7-11.0); MONOCYTES ABSOLUTE AUTO 0.9 x10-3/uL (0.0-1.2); MONOCYTES PERCENT AUTO 8.3 % (5.5-15.2); NEUTROPHILS ABSOLUTE AUTO 6.3 x10-3/uL (1.7-6.9); NEUTROPHILS PERCENT AUTO 58.4 % (40.3-71.8); PLATELET COUNT,PLT 267 x10(3)uL (117-477); RED BLOOD CELL COUNT 5.89 x10(6)uL (3.90-5.90); RED CELL DISTRIBUTION WIDTH 13.1 % (12.4-15.0); WHITE BLOOD CELL COUNT,WBC 10.7 x10-3/uL (3.2-10.1)
[2023-04-05 11:49] LABS: BLOOD UREA NITROGEN,BUN 20 mg/dL (7-18); CALCIUM 8.8 mg/dL (8.6-10.2); CARBON DIOXIDE,CO2 22 mmol/L (21-32); CHLORIDE,CL 98 mmol/L (100-110); EST CRCL DRUG DOSING (CG) 78.03 mL/min; ESTIMATED GFR 89 mL/min (>60); GLUCOSE RANDOM 204 mg/dL (80-116); POTASSIUM,K 4.2 mmol/L (3.5-5.3); SODIUM,NA 133 mmol/L (135-145)
[2023-04-05 11:55] LABS: A/G RATIO 1.1; ALANINE AMINOTRANSFERASE,ALT 38 U/L (12-36); ALBUMIN 3.9 g/dL (3.5-5.2); ALKALINE PHOSPHATASE 127 IU/L (56-112); ASPARTATE AMNIOTRANSFERASE,AST 12 IU/L (5-25); BILIRUBIN TOTAL 0.6 mg/dL (0.1-1.3); MAGNESIUM 2.2 mg/dL (1.8-2.5); PROTEIN TOTAL,TP 7.4 g/dL (6.0-8.0)
[2023-04-05] MEDS: Nitroglycerin 0.4 MG Tab.SL SL PRN ×2 (12:05→12:14)
[2023-04-05 12:10] LABS: INR 1.01 (1.00-1.24); PROTHROMBIN TIME 10.4 sec (9.0-11.1)
[2023-04-05 12:11] LABS: PTT,PARTIAL THROMBOPLSTIN TIME 29.8 SECONDS (24.4-33.2)
[2023-04-05] MEDS ORDERED: Sodium Chloride 0.9% 1,000 ML IV ONE (12:30)
== END 2023-04-05 14:30 | disposition home or self-care (01) ==
LOC: FB.ED 11:01
DX: E86.0 Dehydration (principal); I25.10 Atherosclerotic heart disease of native coronary artery without angina pectoris; E78.00 Pure hypercholesterolemia, unspecified; I10 Essential (primary) hypertension; I25.2 Old myocardial infarction; E11.9 Type 2 diabetes mellitus without complications; E66.9 Obesity, unspecified; F17.200 Nicotine dependence, unspecified, uncomplicated; Z95.1 Presence of aortocoronary bypass graft; Z79.01 Long term (current) use of anticoagulants; Z79.899 Other long term (current) drug therapy; Z79.84 Long term (current) use of oral hypoglycemic drugs; Z79.82 Long term (current) use of aspirin; Z68.32 Body mass index [BMI] 32.0-32.9, adult
CPT/HCPCS: 36415; 71045; 80053; 83735; 84484; 85025; 85610; 85730; 96361; 96374; 99285; A9270; J2405; J3490; J7030

== ENCOUNTER 2023-04-14 10:14 | Emergency (ER) | payer MEDICARE ==
[2023-04-14] MEDS ORDERED: Sodium Chloride 0.9% 10 ML Syringe FLUSH PRN (10:42)
[2023-04-14] MEDS ORDERED: Labetalol 20 MG/4 ML Syringe IVPUSH ONE (10:43)
[2023-04-14 11:01] LABS: BASOPHILS ABSOLUTE AUTO 0.1 x10-3/uL (0.0-0.3); BASOPHILS PERCENT AUTO 0.8 % (0.3-3.8); EOSINOPHILS ABSOLUTE AUTO 0.1 x10-3/uL (0.0-0.6); EOSINOPHILS PERCENT AUTO 0.7 % (0.1-6.8); HEMATOCRIT 48.2 % (38.3-50.1); HEMOGLOBIN 16.4 g/dL (12.9-17.7); LYMPHOCYTES ABSOLUTE AUTO 2.9 x10-3/uL (0.5-4.5); LYMPHOCYTES PERCENT AUTO 29.1 % (15.8-45.3); MEAN CORPUSCULAR HEMOGLOBIN 29.4 pg (27.0-33.3); MEAN CORPUSCULAR VOLUME 86.5 fL (80.8-98.7); MEAN PLATELET VOLUME 7.9 fL (6.7-11.0); MONOCYTES ABSOLUTE AUTO 0.9 x10-3/uL (0.0-1.2); MONOCYTES PERCENT AUTO 8.5 % (5.5-15.2); NEUTROPHILS ABSOLUTE AUTO 6.1 x10-3/uL (1.7-6.9); NEUTROPHILS PERCENT AUTO 60.9 % (40.3-71.8); PLATELET COUNT,PLT 276 x10(3)uL (117-477); RED BLOOD CELL COUNT 5.58 x10(6)uL (3.90-5.90); WHITE BLOOD CELL COUNT,WBC 10.1 x10-3/uL (3.2-10.1)
[2023-04-14 11:03] LABS: BLOOD UREA NITROGEN,BUN 8 mg/dL (7-18); BUN/CREATININE RATIO 8.9 (9-20); CALCIUM 8.8 mg/dL (8.6-10.2); CARBON DIOXIDE,CO2 23 mmol/L (21-32); CHLORIDE,CL 100 mmol/L (100-110); CREATININE 0.9 mg/dL (0.70-1.30); ESTIMATED GFR 101 mL/min (>60); GLUCOSE RANDOM 251 mg/dL (80-116); POTASSIUM,K 3.9 mmol/L (3.5-5.3); SODIUM,NA 135 mmol/L (135-145)
[2023-04-14] MEDS ORDERED: Acetaminophen 500 MG Tab PO ONE (11:04)
[2023-04-14 11:09] LABS: A/G RATIO 1.2; ALANINE AMINOTRANSFERASE,ALT 34 U/L (12-36); ALKALINE PHOSPHATASE 122 IU/L (56-112); ASPARTATE AMNIOTRANSFERASE,AST 13 IU/L (5-25); BILIRUBIN TOTAL 0.4 mg/dL (0.1-1.3); PROTEIN TOTAL,TP 7.4 g/dL (6.0-8.0)
== END 2023-04-14 11:45 | disposition home or self-care (01) ==
LOC: FB.ED 10:14
DX: I16.9 Hypertensive crisis, unspecified (principal); I11.0 Hypertensive heart disease with heart failure; I50.9 Heart failure, unspecified; I25.2 Old myocardial infarction; I25.810 Atherosclerosis of coronary artery bypass graft(s) without angina pectoris; E78.00 Pure hypercholesterolemia, unspecified; E11.9 Type 2 diabetes mellitus without complications; E66.9 Obesity, unspecified; Z79.01 Long term (current) use of anticoagulants; Z79.899 Other long term (current) drug therapy; Z79.84 Long term (current) use of oral hypoglycemic drugs
CPT/HCPCS: 36415; 80053; 84484; 85025; 93005; 96374; 99284; A9270; J3490

== ENCOUNTER 2023-05-12 10:47 | Emergency (ER) | payer MEDICARE | END 2023-05-12 11:48 | disposition home or self-care (01) | LOC: FB.ED 10:47 | DX: K64.9 Unspecified hemorrhoids (principal); I10 Essential (primary) hypertension; I25.10 Atherosclerotic heart disease of native coronary artery without angina pectoris; E78.00 Pure hypercholesterolemia, unspecified; I25.2 Old myocardial infarction; E11.9 Type 2 diabetes mellitus without complications; E66.9 Obesity, unspecified; Z68.32 Body mass index [BMI] 32.0-32.9, adult; Z95.5 Presence of coronary angioplasty implant and graft; Z79.82 Long term (current) use of aspirin; Z79.899 Other long term (current) drug therapy | CPT/HCPCS: 99283 ==

== ENCOUNTER 2023-09-25 15:16 | Emergency (ER) | payer MEDICARE, OTHER ==
[2023-09-25] MEDS ORDERED: Nitroglycerin 0.4 MG Tab.SL SL ONE (15:17)
[2023-09-25] MEDS: Nitroglycerin 0.4 MG Tab.SL SL ONE ×2 (15:24→16:00)
[2023-09-25] MEDS: Aspirin 81 MG Tab.Chew PO STA (15:25)
[2023-09-25] MEDS: Morphine 4 MG/ML VIAL IVPUSH ONE (15:25)
[2023-09-25 15:30] LABS: BASOPHILS ABSOLUTE AUTO 0.1 x10-3/uL (0.0-0.3); EOSINOPHILS ABSOLUTE AUTO 0.1 x10-3/uL (0.0-0.6); EOSINOPHILS PERCENT AUTO 0.7 % (0.1-6.8); HEMOGLOBIN 16.6 g/dL (12.9-17.7); LYMPHOCYTES ABSOLUTE AUTO 3.2 x10-3/uL (0.5-4.5); LYMPHOCYTES PERCENT AUTO 26.3 % (15.8-45.3); MEAN CORPUSCULAR HEMOGLOBIN 28.5 pg (27.0-33.3); MEAN CORPUSCULAR HGB CONC 33.2 g/dL (28.7-35.3); MEAN PLATELET VOLUME 7.9 fL (6.7-11.0); MONOCYTES ABSOLUTE AUTO 0.9 x10-3/uL (0.0-1.2); MONOCYTES PERCENT AUTO 7.7 % (5.5-15.2); NEUTROPHILS ABSOLUTE AUTO 7.9 x10-3/uL (1.7-6.9); NEUTROPHILS PERCENT AUTO 64.3 % (40.3-71.8); PLATELET COUNT,PLT 255 x10(3)uL (117-477); RED BLOOD CELL COUNT 5.82 x10(6)uL (3.90-5.90); WHITE BLOOD CELL COUNT,WBC 12.3 x10-3/uL (3.2-10.1)
[2023-09-25 15:33] LABS: BLOOD UREA NITROGEN,BUN 20 mg/dL (7-18); BUN/CREATININE RATIO 22.2 (9-20); CALCIUM 9.1 mg/dL (8.6-10.2); CARBON DIOXIDE,CO2 24 mmol/L (21-32); CHLORIDE,CL 99 mmol/L (100-110); CREATININE 0.9 mg/dL (0.70-1.30); ESTIMATED GFR 101 mL/min (>60); GLUCOSE RANDOM 191 mg/dL (80-116); POTASSIUM,K 3.9 mmol/L (3.5-5.3); SODIUM,NA 132 mmol/L (135-145)
[2023-09-25 15:39] LABS: A/G RATIO 1.1; ALANINE AMINOTRANSFERASE,ALT 34 U/L (12-36); ALBUMIN 3.9 g/dL (3.5-5.2); ALKALINE PHOSPHATASE 131 IU/L (56-112); ASPARTATE AMNIOTRANSFERASE,AST 11 IU/L (5-25); BILIRUBIN TOTAL 0.6 mg/dL (0.1-1.3); PROTEIN TOTAL,TP 7.5 g/dL (6.0-8.0)
[2023-09-25 15:46] LABS: TROPONIN I 11.4 pg/mL (4.0-60.3)
[2023-09-25] MEDS: Morphine 2 MG/ML SYRINGE IVPUSH ONE (16:01)
[2023-09-25] MEDS: Sodium Chloride 0.9% 10 ML Syringe FLUSH PRN (16:03)
[2023-09-25 16:05] LABS: D-DIMER QUANTITATIVE 0.22 mg/LFEU (0.0-0.59)
[2023-09-25 16:10] LABS: INR 0.99 (1.00-1.24); PROTHROMBIN TIME 10.3 sec (9.0-11.1)
[2023-09-25] MEDS: Sodium Chloride 0.9% 1,000 ML IV SCH (16:46)
[2023-09-25] MEDS: Nitroglycerin/D5W 25 MG/250 ML BOTTLE IV SCH (16:46)
== END 2023-09-25 19:15 | disposition home or self-care (01) ==
LOC: FB.ED 15:16
DX: I25.10 Atherosclerotic heart disease of native coronary artery without angina pectoris (principal); I11.0 Hypertensive heart disease with heart failure; I50.9 Heart failure, unspecified; E78.00 Pure hypercholesterolemia, unspecified; E11.9 Type 2 diabetes mellitus without complications; E66.9 Obesity, unspecified; I25.2 Old myocardial infarction; F17.210 Nicotine dependence, cigarettes, uncomplicated; Z95.1 Presence of aortocoronary bypass graft; Z79.84 Long term (current) use of oral hypoglycemic drugs; Z79.82 Long term (current) use of aspirin; Z79.899 Other long term (current) drug therapy; Z88.8 Allergy status to other drugs, medicaments and biological substances; Z68.33 Body mass index [BMI] 33.0-33.9, adult
CPT/HCPCS: 36415; 71045; 80053; 83880; 84484; 85025; 85379; 85610; 85730; 93005; 93010; 96365; 96366; 96375; 96376; 99284; 99285; A9270; J2270; J2305; J3490; J7030